=== PATIENT | female | born 1975 | race Caucasian/White ===

== ENCOUNTER 2023-04-19 11:06 | Observation (INO) | payer OTHER, SELFPAY ==
[2023-04-19] VITALS (43 sets, daily range): BP systolic 128–218; BP diastolic 94–144; PULSE 73–134; RESP 9–36; TEMP 36.6–37.1; O2SAT 91–100; BMI 30.4
--- NOTE | 2023-04-19 11:12 | ECG_ITS ---
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
--- NOTE | 2023-04-19 11:18 | ED.ALCOHOL1 ---
HPI - Alcohol General Chief Complaint: Alcohol Stated Complaint: HIGH BLOOD PRESSURE, SOB Time Seen by Provider: 04/19/23 11:12 History of Present Illness HPI narrative: patient sent over from her PCP's office to be admitted for acute alcohol withdrawal. She was supposed to get a pre-surgical evaluation at the office but she was shaky, agitated and vomiting since quitting alcohol a few days ago. She is a chronic alcoholic and every day drinker. She has had problems with alcohol dependence and subsequent withdrawal when she quit drinking in the past. She complains of nausea, anxiety, abdominal pain and tremors. Related Data Allergies Allergy/AdvReac Type Severity Reaction Status Date / Time No Known Drug Allergies Allergy Verified 04/19/23 11:13 PFSH PFS Social History Smoking status: Current every day smoker Exam Narrative Exam Narrative: Nurses notes and vital signs reviewed and patient is not hypoxic. afebrile General: Well-appearing and in no apparent distress. Skin: Warm, dry, no pallor noted. Head: Normocephalic, atraumatic. Neck: Supple, non-tender. Eye: Pupils are equal, round and EOMI. No scleral icterus. Ears, Nose, Mouth, and Throat: Oral mucosa is dry Cardiovascular: Tachycardia. Respiratory: No accessory muscle use or respiratory distress. Lungs are clear to auscultation, no wheezing, rales or rhonchi Musculoskeletal: normal ROM, no calf or popliteal tenderness, no lower extremity edema/swelling GI: Abdomen is soft, non-distended. Normal bowel sounds. Upper abdominal tenderness to palpation. No rebound, guarding, or rigidity noted. Neurological: A&O x4. No cranial nerve dysfunction observed. No truncal ataxia. Moves all extremities. Sensation intact. Psychiatric: Cooperative and interactive. Normal mood and affect. Constitutional Vital Signs - 24 hr 04/19/23 11:13 04/19/23 11:16 04/19/23 11:21 Temperature 98.3 F Pulse Rate 103 H Pulse Rate [Monitor] 108 H Respiratory Rate 24 25 H Blood Pressure Blood Pressure [Left Arm] 192/130 H Pulse Oximetry 98 99 Oxygen Delivery Method Room Air 04/19/23 11:30 04/19/23 11:40 04/19/23 11:50 Temperature Pulse Rate 99 H 127 H 99 H Pulse Rate [Monitor] Respiratory Rate 19 18 19 Blood Pressure Blood Pressure [Left Arm] Pulse Oximetry 99 99 100 Oxygen Delivery Method 04/19/23 12:00 04/19/23 12:10 04/19/23 12:20 Temperature Pulse Rate 98 H 100 H 104 H Pulse Rate [Monitor] Respiratory Rate 20 9 L 16 Blood Pressure Blood Pressure [Left Arm] Pulse Oximetry 100 100 99 Oxygen Delivery Method 04/19/23 12:30 04/19/23 12:40 04/19/23 12:48 Temperature Pulse Rate 124 H 109 H 107 H Pulse Rate [Monitor] Respiratory Rate 21 13 25 H Blood Pressure 128/99 H Blood Pressure [Left Arm] Pulse Oximetry 98 99 98 Oxygen Delivery Method 04/19/23 12:48 04/19/23 13:02 04/19/23 13:10 Temperature Pulse Rate 110 H 106 H 109 H Pulse Rate [Monitor] Respiratory Rate 16 18 17 Blood Pressure Blood Pressure [Left Arm] Pulse Oximetry 98 98 Oxygen Delivery Method 04/19/23 13:20 04/19/23 13:24 04/19/23 13:24 Temperature Pulse Rate 115 H 111 H 106 H Pulse Rate [Monitor] Respiratory Rate 14 25 H 13 Blood Pressure 177/114 H Blood Pressure [Left Arm] Pulse Oximetry Oxygen Delivery Method 04/19/23 13:31 Temperature Pulse Rate 108 H Pulse Rate [Monitor] Respiratory Rate 12 Blood Pressure 174/113 H Blood Pressure [Left Arm] Pulse Oximetry Oxygen Delivery Method Course Vital Signs Vital signs: Vital Signs Temperature 98.3 F 04/19/23 11:13 Pulse Rate 108 H 04/19/23 11:13 Respiratory Rate 24 04/19/23 11:13 Blood Pressure 192/130 H 04/19/23 11:13 Pulse Oximetry 98 04/19/23 11:13 Oxygen Delivery Method Room Air 04/19/23 11:13 Temperature 98.3 F 04/19/23 11:13 Pulse Rate 108 H 04/19/23 13:31 Respiratory Rate 12 04/19/23 13:31 Blood Pressure 174/113 H 04/19/23 13:31 Pulse Oximetry 98 04/19/23 13:02 Oxygen Delivery Method Room Air 04/19/23 11:13 MDM - Alcohol MDM Narrative Medical decision making narrative: Patient was placed on wildlife technician and EKG obtained. Blood drawn and sent for evaluation. urine sent for testing. Her qual HCG came back positive and quant was 13 - she told me that 2 weeks ago she had intense nausea and pelvic pain and a couple of days later passed a large amount of blood vaginally. I presume she had a miscarriage and the quant is decreasing back to zero. Patient given NS IVF, IV Ativan, IV Zofran and IV Dilaudid for her symptoms. CBC normal, UA negative, CMP notable for slightly increased Cr and AST. Case discussed with Dr Harkins - medicine ceramic tile installation helper - about admitting this patient for treatment of her alcohol withdrawal. Patient will be admitted to the ICU for alcohol withdrawal. Lab Data Attestation: I reviewed the patient's lab results. Labs: Lab Results 04/19/23 04/19/23 Range/Units 11:30 12:39 WBC 10.0 (4.0-11.0) 10^3/uL RBC 4.38 (4.20-5.40) 10^6/uL Hgb 15.0 (12.0-16.0) g/dL Hct 41.7 (36.0-48.0) % MCV 95.2 (81.0-99.0) fL MCH 34.2 H (26.7-34.0) pg MCHC 36.0 H (29.9-35.2) g/dL RDW 14.2 (11.0-15.0) % Plt Count 356 (150-450) 10^3/uL MPV 10.5 (9.5-13.5) fL Neut % (Auto) 72.4 (43.0-75.0) % Lymph % (Auto) 22.1 (20.5-60.0) % [place] % (Auto) 4.4 (1.7-12.0) % Eos % (Auto) 0.3 L (0.9-7.0) % Baso % (Auto) 0.4 (0.2-2.0) % Neut # (Auto) 7.2 H (1.4-6.5) 10^3/uL Lymph # (Auto) 2.2 (1.2-3.8) 10^3/uL [place] # (Auto) 0.4 (0.3-0.8) 10^3/uL Eos # (Auto) 0.0 (0.0-0.7) 10^3/uL Baso # (Auto) 0.0 (0.0-0.1) 10^3/uL Abs Immat Gran (auto) 0.04 H (0.00-0.03) 10^3/uL Imm/Tot Granulo (auto) 0.4 (0.0-0.5) % Sodium 140 (136-145) mmol/L Potassium 3.6 (3.5-5.1) mmol/L Chloride 100 (98-107) mmol/L Carbon Dioxide 27.9 (21.0-32.0) mmol/L Anion Gap 15.7 BUN 15.0 (7.0-18.0) mg/dL Creatinine 1.19 H (0.55-1.02) mg/dL Est GFR ( Amer) 59 L (>=60) Est GFR (Non-Af Amer) 49 L (>=60) BUN/Creatinine Ratio 12.6 Glucose 114 H (74-106) mg/dL Calcium 9.2 (8.5-10.1) mg/dL Total Bilirubin 0.5 (0.2-1.0) mg/dL AST 71 H (15-37) U/L ALT 46 (14-59) U/L Alkaline Phosphatase 122 H (46-116) U/L Total Protein 7.9 (6.4-8.2) g/dL Albumin 4.0 (3.4-5.0) g/dL Globulin 3.9 g/dL Albumin/Globulin Ratio 1.0 Serum HCG, Qual Positive A (NEGATIVE) HCG, Quant 13 mIU/mL Ethanol Quant 111 mg/dL ECG Data Interpretation: EKG interpretation: Emergency Department physician interpretation. Normal sinus rhythm at 98bpm. Normal axis, normal intervals and no ST segment elevation or depression. Normal EKG. Discharge Plan Discharge Chief Complaint: Alcohol Clinical Impression: Alcohol withdrawal syndrome Patient Disposition: Admitted As Inpatient Time of Disposition Decision: 14:18 Referrals: Physician,Non-Staff, MD [Primary Care Provider] - 1 week
[2023-04-19 11:49] LABS: Basophils Percent Auto 0.4 % (0.2-2.0); Eosinophils Percent Auto 0.3 % (0.9-7.0); Hematocrit 41.7 % (36.0-48.0); Immature Granulocytes Abs Auto 0.04 10^3/uL (0.00-0.03); Immature Granulocytes Pct Auto 0.4 % (0.0-0.5); Lymphocytes Absolute Auto 2.2 10^3/uL (1.2-3.8); Lymphocytes Percent Auto 22.1 % (20.5-60.0); Mean Corpuscular Hemoglobin 34.2 pg (26.7-34.0); Mean Corpuscular Volume 95.2 fL (81.0-99.0); Mean Platelet Volume 10.5 fL (9.5-13.5); Monocytes Absolute Auto 0.4 10^3/uL (0.3-0.8); Monocytes Percent Auto 4.4 % (1.7-12.0); Neutrophils Absolute Auto 7.2 10^3/uL (1.4-6.5); Neutrophils Percent Auto 72.4 % (43.0-75.0); Platelet Count 356 10^3/uL (150-450); Red Blood Count 4.38 10^6/uL (4.20-5.40); Red Cell Distribution Width 14.2 % (11.0-15.0)
[2023-04-19] MEDS: LORAZEPAM 2 MG/ML 1 ML VIAL 1 MG IV (11:52)
[2023-04-19] MEDS: 0.9 % SODIUM CHLORIDE 1,000 ML 999 ML IV (11:52)
[2023-04-19] MEDS: ONDANSETRON PF 4 MG/2 ML VIAL IV ×3 (11:52→19:52)
[2023-04-19 12:40] LABS: HCG Qualitative POSITIVE (NEGATIVE)
[2023-04-19 12:49] LABS: Scan Results NEGATIVE
--- NOTE | 2023-04-19 13:01 | PC.NURSE ---
IV infiltrated with NS running. IV was DC cath intact and dressing applied.
[2023-04-19 13:10] LABS: HCG Quantitative 13 mIU/mL
[2023-04-19 13:13] LABS: Alanine Aminotransferase 46 U/L (14-59); Alkaline Phosphatase 122 U/L (46-116); Anion Gap 15.7; Aspartate Amino Transferase 71 U/L (15-37); BUN Creatinine Ratio 12.6; Bilirubin Total 0.5 mg/dL (0.2-1.0); Calcium 9.2 mg/dL (8.5-10.1); Carbon Dioxide 27.9 mmol/L (21.0-32.0); Chloride 100 mmol/L (98-107); Estimated GFR (African America 59 (>=60); Estimated GFR (Non-African Ame 49 (>=60); Ethanol 111 mg/dL; Globulin 3.9 g/dL; Glucose 114 mg/dL (74-106); Potassium 3.6 mmol/L (3.5-5.1); Sodium 140 mmol/L (136-145); Total Protein 7.9 g/dL (6.4-8.2)
[2023-04-19] MEDS: PROMETHAZINE HCL 25 MG/ML VIAL 12.5 MG IV (13:21)
[2023-04-19] MEDS: HYDROMORPHONE HCL 2 MG/ML VIAL 1 MG IV (13:24)
[2023-04-19] MEDS: LABETALOL HCL 20 MG/4 ML SYRINGE IVP (15:24)
[2023-04-19] MEDS: ENALAPRILAT DIHYDRATE 1.25 MG/ML VIAL IV (15:24)
[2023-04-19] MEDS: ENOXAPARIN SODIUM 40 MG/0.4 ML SYRINGE SUBQ (16:55)
[2023-04-19] MEDS: LACTATED RINGER'S SOLUTION 1,000 ML 125 ML IV (16:56)
[2023-04-19] MEDS: LORAZEPAM 0.5 MG TABLET 2 MG PO (16:56)
[2023-04-19] MEDS: OMEPRAZOLE 40 MG CAPSULE.DR PO (17:05)
[2023-04-19] MEDS: CLONIDINE HCL 0.1 MG TABLET PO (17:05)
[2023-04-19] MEDS: SUCRALFATE 1 GM TABLET PO ×2 (17:05→22:06)
[2023-04-19] MEDS: MORPHINE SULFATE 2 MG/ML SYRINGE IV ×2 (18:13→22:06)
[2023-04-19] MEDS: LORAZEPAM 2 MG/ML 1 ML VIAL IV (20:22)
[2023-04-19] MEDS: LABETALOL HCL 100 MG TABLET PO (22:06)
[2023-04-19] MEDS: AMITRIPTYLINE HCL 25 MG TABLET PO (22:06)
[2023-04-19] MEDS: BUSPIRONE HCL 10 MG TABLET PO (22:06)
[2023-04-20] VITALS (16 sets, daily range): BP systolic 97–172; BP diastolic 74–116; PULSE 60–93; RESP 13–24; TEMP 36.6; O2SAT 92–98
[2023-04-20] MEDS: ONDANSETRON PF 4 MG/2 ML VIAL IV ×3 (01:38→14:49)
[2023-04-20] MEDS: CLONIDINE HCL 0.1 MG TABLET PO ×3 (01:38→17:26)
[2023-04-20] MEDS: LORAZEPAM 0.5 MG TABLET 2 MG PO ×3 (01:40→12:00)
[2023-04-20] MEDS: LACTATED RINGER'S SOLUTION 1,000 ML 125 ML IV ×3 (01:43→16:03)
[2023-04-20] MEDS: MORPHINE SULFATE 2 MG/ML SYRINGE IV ×3 (03:03→20:27)
[2023-04-20 05:00] LABS: HCG Quantitative 9 mIU/mL
[2023-04-20 05:25] LABS: Anion Gap 9.6; BUN Creatinine Ratio 11.8; Bilirubin Total 0.7 mg/dL (0.2-1.0); Calcium 8.2 mg/dL (8.5-10.1); Carbon Dioxide 29.7 mmol/L (21.0-32.0); Chloride 100 mmol/L (98-107); Estimated GFR (African America >60 (>=60); Estimated GFR (Non-African Ame >60 (>=60); Glucose 109 mg/dL (74-106); Potassium 3.3 mmol/L (3.5-5.1); Sodium 136 mmol/L (136-145)
[2023-04-20 05:26] LABS: Alanine Aminotransferase <14 U/L (14-59); Albumin Globulin Ratio 1.4; Albumin Level <3.4 g/dL (3.4-5.0); Alkaline Phosphatase 83 U/L (46-116); Aspartate Amino Transferase 52 U/L (15-37); Globulin 2.4 g/dL; Total Protein 5.8 g/dL (6.4-8.2)
[2023-04-20] MEDS: SUCRALFATE 1 GM TABLET PO ×4 (06:09→21:25)
[2023-04-20] MEDS: OMEPRAZOLE 40 MG CAPSULE.DR PO ×2 (06:09→17:26)
[2023-04-20] MEDS: LABETALOL HCL 100 MG TABLET PO (09:02)
[2023-04-20] MEDS: MAGNESIUM OXIDE 400 MG TABLET PO (09:02)
[2023-04-20] MEDS: BUSPIRONE HCL 10 MG TABLET PO ×2 (09:02→20:28)
[2023-04-20] MEDS: AMLODIPINE BESYLATE 5 MG TABLET 10 MG PO (09:02)
[2023-04-20] MEDS: THIAMINE MONONITRATE (VIT B1) 100 MG TABLET PO (09:02)
[2023-04-20] MEDS: FOLIC ACID 1 MG TABLET PO (09:02)
--- NOTE | 2023-04-20 09:20 | SWNOTE1 ---
PRISCILLA met with pt to discuss dc needs and address alcohol withdrawal. Pt does admit to drinking 7 drinks per day, her beverage of choice is vodka. Pt does admit to drinking for about 5 years. Pt did admit to being sober for about 5 months, but then relapsed due. Pt spoke about her children and that one was in [facility] and was just getting out of rehab for drugs. [facility] and also someone in [place] who she sees that will be giving her the vivitrol shot and that will be starting soon. She will be getting this shot once a month. Pt does live at home with her . She does state her and her care for her autistic grandson. PRISCILLA offered for pt to go from hospital to inpatient to rehab, at this time she does not want to do this. PRISCILLA did review AA meetings with pt and encouraged her to try to attend for a support system. PRISCILLA also gave her inpt/outpt resources as well. PRISCILLA let pt know if she does change her mind and would like to go to inpt rehab for alcohol to ask for PRISCILLA. PRISCILLA to follow as needed.
--- NOTE | 2023-04-20 12:03 | CM.NOTE ---
Rounds made with Dr. Harkins, no discharge today.
--- NOTE | 2023-04-20 14:24 | P.HP_ITS ---
H&P: HPI History of Present Illness Chief complaint: Alcohol withdrawal Narrative: 47 y o female with hx of chronic alcoholism, drinks a litre of hard liquor daily, last drink on 04/18/23 presented to ED with tremors, nausea, diaphoresis, autonomic dysfunction (tachycardia, HTN) along with severe anxiety. She reports every time she stops drinking she experiences severe alcohol withdrawal but never had seizures or DTs. She was scheduled for hysterectomy and had to stop drinking alcohol. She also reports epigastric abdominal pain and right sided pain that is ongoing for months and worsens with drinking. She had recent miscarriage and that's why her HCG levels are above reference range. Patient was admitted to ICU for alcohol withdrawal and started on CIWA protocol, and has been receiving PO ativan along with IV ativan as needed. She reports feeling sig better than yesterday but still feeling nauseous, has tremors and feeling anxious. No hallucinations and currently her CIWA is about 5. She received IV ativan around midnight. Her biggest complaint currently is epigastric and RLQ pain. Lipase is normal. No diarrhea/constipation. Associated nausea but no vomiting today. Review of Systems ROS Status of ROS 10 or more systems reviewed and unremarkable except as noted in history and below PFSH PFSH Medical History Surgical History Family History Father Family history of cancer Grandmother Family history of hypertension Social History Within the past year, how often did you have a drink containing alcohol: 4 or more times a week Within the past year, how many standard drinks containing alcohol did you have on a typical day: 7 to 9 Within the past year, how often did you have six or more drinks on one occasion: daily or almost daily Total score: 10 Score interpretation: A score of 3 or more indicates drinking is likely to affect patient's safety. Smoking status: Current every day smoker Non-prescribed substance use: denies use Highest level of school completed/degree received: 11th grade Meds Home Medications and Allergies Home Medications Medication Instructions Recorded Confirmed Type amitriptyline 25 mg tablet 25 mg PO .QHS 04/19/23 04/19/23 History amlodipine 10 mg tablet 10 mg PO DAILY 04/19/23 04/19/23 History buspirone 10 mg tablet 10 mg PO BID 04/19/23 04/19/23 History clonidine HCl 0.1 mg tablet 0.1 mg PO Q8H 04/19/23 04/19/23 History folic acid 1 mg tablet 1 mg PO DAILY 04/19/23 04/19/23 History hydroxyzine pamoate 25 mg capsule 25 mg PO BID PRN anxiety 04/19/23 04/19/23 History labetalol 100 mg tablet 100 mg PO Q12H 04/19/23 04/19/23 History magnesium oxide 400 mg (241.3 mg 400 mg PO DAILY 04/19/23 04/19/23 History magnesium) tablet nifedipine 60 mg tablet,extended 60 mg PO DAILY 04/19/23 04/19/23 History release pantoprazole 40 mg tablet,delayed 40 mg PO Q12H 04/19/23 04/19/23 History release sucralfate 1 gram tablet 1 g PO QID 04/19/23 04/19/23 History thiamine HCl (vitamin B1) 100 mg 100 mg PO DAILY 04/19/23 04/19/23 History tablet Allergies Allergy/AdvReac Type Severity Reaction Status Date / Time No Known Drug Allergies Allergy Verified 04/19/23 11:13 Exam Constitutional Vital Signs - 24 hr 04/19/23 14:31 04/19/23 14:46 04/19/23 15:01 Temperature Pulse Rate 107 H 111 H 116 H Pulse Rate [Monitor] Respiratory Rate 22 18 23 Blood Pressure 181/113 H 182/114 H 184/118 H Blood Pressure [Left Arm] Pulse Oximetry Oxygen Delivery Method 04/19/23 15:56 04/19/23 15:01 04/19/23 15:16 Temperature Pulse Rate 110 H 81 Pulse Rate [Monitor] Respiratory Rate 22 17 Blood Pressure 154/94 H 184/118 H 172/139 H Blood Pressure [Left Arm] Pulse Oximetry Oxygen Delivery Method 04/19/23 15:31 04/19/23 16:08 04/19/23 16:08 Temperature Pulse Rate 83 83 Pulse Rate [Monitor] 83 Respiratory Rate 13 18 Blood Pressure 170/101 H Blood Pressure [Left Arm] 172/107 H Pulse Oximetry 99 Oxygen Delivery Method Room Air Room Air 04/19/23 16:08 04/19/23 15:57 04/19/23 18:00 Temperature 98.7 F Pulse Rate Pulse Rate [Monitor] Respiratory Rate Blood Pressure Blood Pressure [Left Arm] 210/112 H Pulse Oximetry Oxygen Delivery Method Room Air 04/19/23 20:00 04/19/23 20:07 04/19/23 22:38 Temperature 98.7 F 97.8 F Pulse Rate 99 H 73 Pulse Rate [Monitor] Respiratory Rate 20 Blood Pressure Blood Pressure [Left Arm] 184/108 H 180/100 H Pulse Oximetry 97 98 97 Oxygen Delivery Method Room Air Room Air Room Air 04/20/23 00:00 04/20/23 04:00 04/20/23 01:38 Temperature Pulse Rate Pulse Rate [Monitor] 80 80 Respiratory Rate 20 Blood Pressure 172/116 H Blood Pressure [Left Arm] Pulse Oximetry Oxygen Delivery Method 04/20/23 03:11 04/20/23 07:50 04/19/23 15:31 Temperature 98 F Pulse Rate 73 79 Pulse Rate [Monitor] 68 Respiratory Rate 20 19 Blood Pressure 170/101 H Blood Pressure [Left Arm] 144/103 H Pulse Oximetry 96 Oxygen Delivery Method Room Air 04/19/23 15:46 04/19/23 15:55 04/19/23 15:59 Temperature Pulse Rate 75 81 83 Pulse Rate [Monitor] Respiratory Rate 21 16 11 L Blood Pressure 174/109 H 153/101 H Blood Pressure [Left Arm] Pulse Oximetry Oxygen Delivery Method 04/19/23 16:00 04/19/23 16:09 04/19/23 16:09 Temperature Pulse Rate 82 90 134 H Pulse Rate [Monitor] Respiratory Rate 18 20 13 Blood Pressure 172/107 H Blood Pressure [Left Arm] Pulse Oximetry 98 97 Oxygen Delivery Method 04/19/23 16:09 04/19/23 17:57 04/19/23 19:47 Temperature Pulse Rate 80 91 H 87 Pulse Rate [Monitor] Respiratory Rate 36 H 22 16 Blood Pressure 172/107 H 218/144 H 184/121 H Blood Pressure [Left Arm] Pulse Oximetry 98 Oxygen Delivery Method 04/19/23 22:06 04/19/23 22:10 04/19/23 22:34 Temperature Pulse Rate 88 77 86 Pulse Rate [Monitor] Respiratory Rate 18 16 Blood Pressure 193/141 H 205/142 H 186/116 H Blood Pressure [Left Arm] Pulse Oximetry 97 Oxygen Delivery Method 04/20/23 01:39 04/20/23 03:08 04/20/23 07:55 Temperature Pulse Rate 88 77 64 Pulse Rate [Monitor] Respiratory Rate 18 18 18 Blood Pressure 172/116 H 144/103 H 154/102 H Blood Pressure [Left Arm] Pulse Oximetry 96 Oxygen Delivery Method Documenting provider has reviewed patient's vital signs: yes Common normals: no apparent distress General appearance: cooperative and anxious Nutritional appearance: obese Orientation/consciousness: Yes oriented to person, Yes oriented to place and Yes oriented to time HENMT Common normals: normocephalic and head/scalp atraumatic Eye Common normals: PERRL, EOMs intact bilaterally, conjunctivae normal and no scleral icterus Respiratory Common normals: normal respiratory effort, no retractions, no use of accessory muscles and clear to auscultation bilaterally Effort & inspection: able to speak in complete sentences Cardio Common normals: no JVD, regular rate, regular rhythm, S1 normal heart sound and S2 normal heart sound GI Common normals: Normal to inspection, nondistended, normoactive bowel sounds present, soft to palpation and no hepatosplenomegaly Palpation: tender Details: epigastric Common normals: no CVA tenderness Extremity Common normals: normal to inspection and full ROM Neuro Common normals: oriented x3, moves all extremities, no focal motor deficits and no sensory deficits noted Psych Common normals: mental status grossly normal, thought process normal, denies homicidal ideation and denies suicidal ideation Results Labs Labs: [facility] 04/20/23 05:00 Sodium 136 Potassium 3.3 L Chloride 100 Carbon Dioxide 29.7 BUN 11.0 Creatinine 0.93 Glucose 109 H Calcium 8.2 L Liver Function 04/20/23 Range/Units 05:00 Total Bilirubin 0.7 (0.2-1.0) mg/dL AST 52 H (15-37) U/L ALT <14 L (14-59) U/L Alkaline Phosphatase 83 (46-116) U/L Albumin <3.4 L (3.4-5.0) g/dL Assessment and Plan Assessment and Plan (1) Alcohol withdrawal syndrome: Assessment and Plan: P/w severe alcohol withdrawal. Improved but still in withdrawal. C/w current treatment. PO ativa 2q4 along IV ativan as needed She is also on clonidine and hydroxyzine at home. Qualifiers: Complication of substance-induced condition: uncomplicated Qualified Code(s): F10.930 - Alcohol use, unspecified with withdrawal, uncomplicated (2) HTN (hypertension): Assessment and Plan: Better controlled. Cw labetaolol, clonidine and amlodipine. Was poorly controlled when she came in likely due to alcohol withdrawal. Qualifiers: Hypertension type: primary hypertension Qualified Code(s): I10 - Essential (primary) hypertension (3) Abdominal pain: Assessment and Plan: suspect epigastric pain is due to gastritis from alcohol use. On PPI and carafate. Lipase is normal Monitor for now. Zofran as needed for N/V Abdominal exam is benign. If worsening pain/persistent pain, will consider CT abd/pelvis. Qualifiers: Abdominal location: epigastric Qualified Code(s): R10.13 - Epigastric pain (4) AISLINN (generalized anxiety disorder): Assessment and Plan: On buspirone, clonidine and hydroxyzine as outpatient. Currently receiving ativan too for withdrawal symptoms (5) Miscarriage: Assessment and Plan: recent miscarriage. She was scheduled for hysterectomy as outpatient. HCG tren ding down.
[2023-04-20] MEDS: HYDROXYZINE PAMOATE 25 MG CAPSULE PO (16:00)
[2023-04-20] MEDS: LORAZEPAM 1 MG TABLET 2 MG PO ×2 (16:03→21:24)
[2023-04-20] MEDS: ENOXAPARIN SODIUM 40 MG/0.4 ML SYRINGE SUBQ (17:26)
[2023-04-20] MEDS: POTASSIUM CHLORIDE 10 MEQ ER TABLET 40 MEQ PO (17:35)
[2023-04-20] MEDS: AMITRIPTYLINE HCL 25 MG TABLET PO (21:25)
[2023-04-21] VITALS (11 sets, daily range): BP systolic 140–160; BP diastolic 93–112; PULSE 52–81; RESP 16–18; TEMP 36.9; O2SAT 93–96
[2023-04-21] MEDS: LORAZEPAM 1 MG TABLET 2 MG PO ×4 (00:07→12:23)
[2023-04-21] MEDS: LACTATED RINGER'S SOLUTION 1,000 ML 125 ML IV ×2 (00:07→08:16)
[2023-04-21] MEDS: SUCRALFATE 1 GM TABLET PO ×2 (05:15→12:23)
[2023-04-21] MEDS: OMEPRAZOLE 40 MG CAPSULE.DR PO (05:15)
[2023-04-21 05:46] LABS: Basophils Percent Auto 0.6 % (0.2-2.0); Eosinophils Percent Auto 0.6 % (0.9-7.0); Hematocrit 30.1 % (36.0-48.0); Hemoglobin 10.7 g/dL (12.0-16.0); Lymphocytes Percent Auto 63.7 % (20.5-60.0); Mean Corpuscular HGB Conc 35.5 g/dL (29.9-35.2); Mean Corpuscular Hemoglobin 34.6 pg (26.7-34.0); Mean Corpuscular Volume 97.4 fL (81.0-99.0); Mean Platelet Volume 10.5 fL (9.5-13.5); Monocytes Absolute Auto 0.3 10^3/uL (0.3-0.8); Monocytes Percent Auto 6.9 % (1.7-12.0); Neutrophils Absolute Auto 1.3 10^3/uL (1.4-6.5); Neutrophils Percent Auto 28.2 % (43.0-75.0); Platelet Count 209 10^3/uL (150-450); Red Blood Count 3.09 10^6/uL (4.20-5.40); Red Cell Distribution Width 14.6 % (11.0-15.0); White Blood Count 4.8 10^3/uL (4.0-11.0)
[2023-04-21 06:07] LABS: Alanine Aminotransferase 28 U/L (14-59); Albumin Globulin Ratio 0.8; Albumin Level 2.4 g/dL (3.4-5.0); Alkaline Phosphatase 74 U/L (46-116); Anion Gap 8.1; Aspartate Amino Transferase 49 U/L (15-37); BUN Creatinine Ratio 5.1; Bilirubin Total 0.6 mg/dL (0.2-1.0); Calcium 8.3 mg/dL (8.5-10.1); Carbon Dioxide 29.3 mmol/L (21.0-32.0); Chloride 106 mmol/L (98-107); Estimated GFR (African America >60 (>=60); Estimated GFR (Non-African Ame >60 (>=60); Globulin 2.9 g/dL; Glucose 97 mg/dL (74-106); Potassium 3.4 mmol/L (3.5-5.1); Sodium 140 mmol/L (136-145); Total Protein 5.3 g/dL (6.4-8.2)
[2023-04-21] MEDS: LABETALOL HCL 100 MG TABLET PO (08:16)
[2023-04-21] MEDS: AMLODIPINE BESYLATE 5 MG TABLET 10 MG PO (08:16)
[2023-04-21] MEDS: THIAMINE MONONITRATE (VIT B1) 100 MG TABLET PO (08:16)
[2023-04-21] MEDS: BUSPIRONE HCL 10 MG TABLET PO (08:16)
[2023-04-21] MEDS: FOLIC ACID 1 MG TABLET PO (08:17)
[2023-04-21] MEDS: MAGNESIUM OXIDE 400 MG TABLET PO (08:17)
[2023-04-21] MEDS: OXYCODONE HCL 5 MG TABLET PO (08:26)
[2023-04-21] MEDS: CLONIDINE HCL 0.1 MG TABLET PO (10:11)
--- NOTE | 2023-04-21 13:41 | PM.DS1 ---
DS: Providers Provider Date of admission: 04/19/23 14:15 Primary care physician: Non-Staff Physician, Consults: 04/20/23 11:55 Occupational Therapy Eval and Treat Routine Physical Therapy Eval and Treat Routine DS: Diagnosis Discharge Diagnosis (1) Alcohol withdrawal syndrome: Qualifiers: Complication of substance-induced condition: uncomplicated Qualified Code(s): F10.930 - Alcohol use, unspecified with withdrawal, uncomplicated (2) HTN (hypertension): Qualifiers: Hypertension type: primary hypertension Qualified Code(s): I10 - Essential (primary) hypertension (3) Abdominal pain: Qualifiers: Abdominal location: epigastric Qualified Code(s): R10.13 - Epigastric pain (4) AISLINN (generalized anxiety disorder): (5) Miscarriage: Plan Primary diagnosis: Alchol withdrawal Secondary diagnosis: 1. Abdominal pain 2. HTN 3. AISLINN DS: Summary Hospital Course Hospital Course: Reason for admission: See ER note and H&P for details. 47 y/o female sent to ER from PCP office with alcohol withdrawal. Seen in office and noted to be shaky and agitated. Drinks 1 L liquor daily and stopped 04/18. Started to have symptoms and directed to ER. History of withdrawal in past but no seizures. BP elevated in ER and given IV fluids. Admitted for treatment Hospital course: Started IV fluids and ativan per [facility] protocol. Resumed home medication. BP improved and vitals stable. Not as shaky or jittery and ativan helping. Ambulating around room and eating well. [place] much better and discharged home in stable condition. Use ativan PRN and need to wean. Continue home medication without change. Reports scheduled with treatment center next week. Time Spent with Patient Time attestation: Total time spent providing and/or coordinating discharge services: Time spent: less than 30 minutes Quality: Stroke Symptom Onset Unknown: No Exam Constitutional Vital Signs - 24 hr 04/20/23 14:37 04/20/23 14:35 04/20/23 17:26 Temperature Pulse Rate 60 Respiratory Rate 16 15 Blood Pressure 133/89 H 121/77 H Blood Pressure [Left Arm] 133/89 H Pulse Oximetry 98 Oxygen Delivery Method Room Air 04/21/23 03:48 04/21/23 03:48 04/20/23 23:40 Temperature Pulse Rate 55 L Respiratory Rate 17 Blood Pressure Blood Pressure [Left Arm] Pulse Oximetry 93 L 92 L Oxygen Delivery Method Room Air 04/21/23 00:23 04/21/23 00:25 04/20/23 14:35 Temperature Pulse Rate 52 L 69 Respiratory Rate 17 13 Blood Pressure 133/89 H Blood Pressure [Left Arm] Pulse Oximetry Oxygen Delivery Method 04/20/23 17:27 04/20/23 20:28 04/20/23 21:22 Temperature Pulse Rate 72 63 93 H Respiratory Rate 16 13 19 Blood Pressure 121/77 H 97/74 131/83 H Blood Pressure [Left Arm] Pulse Oximetry 95 Oxygen Delivery Method 04/21/23 00:08 04/21/23 03:45 04/21/23 08:16 Temperature Pulse Rate 54 L Respiratory Rate 17 Blood Pressure 140/93 H 160/112 H Blood Pressure [Left Arm] Pulse Oximetry 93 L Oxygen Delivery Method Room Air 04/21/23 07:40 04/21/23 08:00 04/21/23 08:00 Temperature 98.4 F Pulse Rate 81 67 Respiratory Rate 18 Blood Pressure 160/112 H Blood Pressure [Left Arm] Pulse Oximetry 96 Oxygen Delivery Method 04/21/23 10:11 04/21/23 11:26 04/21/23 12:00 Temperature Pulse Rate Respiratory Rate 16 Blood Pressure 142/98 H Blood Pressure [Left Arm] Pulse Oximetry 93 L Oxygen Delivery Method Room Air 04/21/23 12:00 Temperature Pulse Rate 53 L Respiratory Rate Blood Pressure Blood Pressure [Left Arm] Pulse Oximetry Oxygen Delivery Method Documenting provider has reviewed patient's vital signs: yes Common normals: no apparent distress and alert [facility] Common normals: normocephalic Eye Common normals: PERRL and EOMs intact bilaterally Neck & C-Spine Common normals: no lymphadenopathy, supple and no carotid bruits Respiratory Common normals: clear to auscultation bilaterally Cardio Common normals: regular rate, regular rhythm, no gallops, no murmurs and no rub GI Common normals: Normal to inspection, nondistended, normoactive bowel sounds present and soft to palpation Extremity General: no edema DS: Data Data Completed and Pending Labs on day of discharge: Labs from last 24 hours 04/21/23 04:30 WBC 4.8 RBC 3.09 L Hgb 10.7 L Hct 30.1 L MCV 97.4 MCH 34.6 H MCHC 35.5 H RDW 14.6 Plt Count 209 MPV 10.5 Neut % (Auto) 28.2 L Lymph % (Auto) 63.7 H [place] % (Auto) 6.9 Eos % (Auto) 0.6 L Baso % (Auto) 0.6 Neut # (Auto) 1.3 L Lymph # (Auto) 3.0 [place] # (Auto) 0.3 Eos # (Auto) 0.0 Baso # (Auto) 0.0 Abs Immat Gran (auto) 0.00 Imm/Tot Granulo (auto) 0.0 Sodium 140 Potassium 3.4 L Chloride 106 Carbon Dioxide 29.3 Anion Gap 8.1 BUN 5.0 L Creatinine 0.98 Est GFR ( Amer) >60 Est GFR (Non-Af Amer) >60 BUN/Creatinine Ratio 5.1 Glucose 97 Calcium 8.3 L Total Bilirubin 0.6 AST 49 H ALT 28 Alkaline Phosphatase 74 Total Protein 5.3 L Albumin 2.4 L Globulin 2.9 Albumin/Globulin Ratio 0.8 Discharge Plan Discharge Disposition: Home, Self-Care Condition: Good Discharge Medications: New lorazepam 0.5 mg tablet 0.5 mg PO Q4H PRN (Reason: alcohol withdrawal) 7 Days Qty: 42 0RF Continued amitriptyline 25 mg tablet 25 mg PO .QHS amlodipine 10 mg tablet 10 mg PO DAILY buspirone 10 mg tablet 10 mg PO BID clonidine HCl 0.1 mg tablet 0.1 mg PO Q8H folic acid 1 mg tablet 1 mg PO DAILY hydroxyzine pamoate 25 mg capsule 25 mg PO BID PRN (Reason: anxiety) labetalol 100 mg tablet 100 mg PO Q12H magnesium oxide 400 mg (241.3 mg magnesium) tablet 400 mg PO DAILY nifedipine 60 mg tablet extended release 60 mg PO DAILY pantoprazole 40 mg tablet,delayed release (DR/EC) 40 mg PO Q12H sucralfate 1 gram tablet 1 g PO QID Patient Comments: BEFORE MEALS AND BEDTIME thiamine HCl (vitamin B1) 100 mg tablet 100 mg PO DAILY sertraline 50 mg tablet 50 mg PO DAILY tizanidine 4 mg tablet 4 mg PO TID PRN (Reason: muscle spasticity) Activity: increase activity as tolerated Diet: advance to your usual diet Patient Instructions: Lorazepam (By mouth) Forms: Portal Instructions Follow Up Appointments: Make follow up appointment with Choco Jin for 1 week
--- NOTE | 2023-04-23 16:11 | CM.DCFOLLOWU ---
Person spoke with: Emily How are you feeling? great How is your pain? none Did you understand your discharge instructions? yes Do you have any questions about your discharge instructions? no Were you given any prescriptions at discharge? yes Were you able to get your prescriptions filled? yes Do you understand how to take your medications as ordered? yes Do you have any questions about your follow up appointment and do you plan to keep your follow up appointment? no Is there anything else that you would like to discuss? no Questions/Comments/Concerns/Other:
== END 2023-04-21 13:40 | disposition home or self-care (01) ==
LOC: ER 14:18 → ICU 16:05
PROVIDERS: Admitting Provider Internal Medicine; Emergency Provider Emergency Medicine; Family Provider Nurse Practitioner Primary Care; Visit Provider Internal Medicine
DX: F10.239 Alcohol dependence with withdrawal, unspecified (principal); R10.9 Unspecified abdominal pain; I10 Essential (primary) hypertension; F41.1 Generalized anxiety disorder; F17.210 Nicotine dependence, cigarettes, uncomplicated; Z79.899 Other long term (current) drug therapy
CPT/HCPCS: 36415; 80053; 80307; 80320; 81003; 83690; 84702; 84703; 85025; 93005; 94761; 96361; 96372; 96374; 96375; 96376; 99285; G0378; J1170